=== PATIENT | male | born 1945 | race Two or more races ===

== ENCOUNTER 2018-02-15 09:50 | Emergency (ER) | payer OTHER ==
[~2018-02-15] VITALS: Ht 177.8 cm; Wt 88.5 kg
[~2018-02-15 09:50] MED LIST: NORTUSS-EX LIQ118 ML PO; TENORMIN50 M1 PO; ZITHROMAX500 MG PO
[2018-02-15] MEDS ORDERED: ORPHENADRINE C100 MG PO (14:51)
[2018-02-15] MEDS ORDERED: ULTRACET PO (14:51)
== END 2018-02-15 15:39 | disposition home or self-care (01) ==
LOC: ER 09:50
DX: M62.830 Muscle spasm of back (principal); R10.11 Right upper quadrant pain

== ENCOUNTER 2018-05-08 10:13 | Outpatient (CLI) | payer OTHER ==
[~2018-05-08 10:13] MED LIST changes: +ORPHENADRINE C100 MG PO; +ULTRACET PO
== END 2018-05-08 10:25 | disposition home or self-care (01) ==
LOC: RAD 501 10:13
DX: I70.0 Atherosclerosis of aorta (principal)

== ENCOUNTER 2020-02-03 17:46 | Emergency (ER) | payer OTHER ==
[~2020-02-03] VITALS: Ht 177.8 cm; Wt 86.2 kg
[2020-02-03] MEDS ORDERED: ATORVASTATIN CA40 MG (18:31)
[2020-02-03] MEDS ORDERED: COZAAR25 MG (18:31)
[2020-02-03] MEDS ORDERED: TOPROL XL50 M1 (18:32)
[2020-02-03] MEDS ORDERED: FORTAMET500 MG (18:32)
== END 2020-02-03 20:43 | disposition home or self-care (01) ==
LOC: ER 17:46
DX: I10 Essential (primary) hypertension (principal)

== ENCOUNTER 2021-10-09 10:43 | Outpatient (CLI) | payer OTHER ==
[~2021-10-09 10:43] MED LIST changes: +ATORVASTATIN CA40 MG; +COZAAR25 MG; +FORTAMET500 MG; +TOPROL XL50 M1
== END 2021-10-09 11:03 | disposition home or self-care (01) ==
LOC: RAD 10:43
PROVIDERS: ATTEND Physical Medicine & Rehabilitation
DX: M54.12 Radiculopathy, cervical region (principal)

== ENCOUNTER 2021-10-29 08:00 | Outpatient (CLI) | payer OTHER | END 2021-10-29 08:30 | disposition home or self-care (01) | LOC: PPH VACUNA 08:00 | PROVIDERS: ATTEND Emergency Medicine Pediatric Emergency Medicine | DX: Z23 Encounter for immunization (principal) ==

== ENCOUNTER 2022-01-04 09:32 | Emergency (ER) | payer OTHER ==
[~2022-01-04] VITALS: Ht 177.8 cm; Wt 83.9 kg
== END 2022-01-04 11:39 | disposition home or self-care (01) ==
LOC: ER 09:32
DX: K14.0 Glossitis (principal); Z88.8 Allergy status to other drugs, medicaments and biological substances; I10 Essential (primary) hypertension; E11.9 Type 2 diabetes mellitus without complications; Z79.84 Long term (current) use of oral hypoglycemic drugs

== ENCOUNTER 2023-08-04 13:15 | Emergency (ER) | payer OTHER ==
[~2023-08-04] VITALS: Ht 177.8 cm; Wt 83.9 kg
[2023-08-04] MEDS ORDERED: JARDIANCE10 MG (14:03)
[2023-08-04] MEDS ORDERED: ECOTRIN81 MG PO (14:03)
[2023-08-04 17:19] LABS: HEMATOCRIT 42.8 % (39.0-48.0); HEMOGLOBIN 14.6 g/dL (13-16.00); MEAN CELL VOLUME 89.1 fL (80.0-100.00); MEAN CORPUSCULAR HEMOGLOBIN 30.3 pg (27.00-32.0); PLATELET COUNT 204 K/uL (150-450); RED CELL DISTRIBUTION WIDTH 14.2 % (11.5-14.5)
[2023-08-04] MEDS ORDERED: BUDESONIDE0.5 MG/2 M IH (20:50)
[2023-08-04] MEDS ORDERED: ALBUTEROL2.5 MG/3 M IH (20:50)
== END 2023-08-04 21:00 | disposition home or self-care (01) ==
LOC: ER 13:16
PROVIDERS: Emergency Medicine
DX: J40 Bronchitis, not specified as acute or chronic (principal); I11.9 Hypertensive heart disease without heart failure; I20.89 Other forms of angina pectoris

== ENCOUNTER 2024-02-03 09:20 | Outpatient (CLI) | payer OTHER ==
[~2024-02-03 09:20] MED LIST changes: +ALBUTEROL2.5 MG/3 M IH; +BUDESONIDE0.5 MG/2 M IH; +ECOTRIN81 MG PO; +JARDIANCE10 MG
== END 2024-02-03 09:24 | disposition home or self-care (01) ==
LOC: RAD 09:20
DX: N39.3 Stress incontinence (female) (male) (principal)

== ENCOUNTER 2024-08-18 05:26 | Emergency (ER) | payer OTHER ==
[~2024-08-18] VITALS: Ht 177.8 cm; Wt 81.6 kg
[2024-08-18] MEDS ORDERED: JARDIANCE10 MG PO (05:44)
[2024-08-18] MEDS ORDERED: KETOROLAC TROMETHAMINE 30 MG VIAL IM STA (08:29)
[2024-08-18] MEDS ORDERED: GENTAMICIN SULFATE 0.15 MG/DR DROPS 5ML OP STA (08:29)
[2024-08-18] MEDS ORDERED: CEFTRIAXONE SODIUM 1,000 MG VIAL IM STA (08:29)
[2024-08-18] MEDS ORDERED: KETOROLAC TROMETHAMINE 30 MG VIAL ONE (08:36)
[2024-08-18] MEDS ORDERED: GENTAMICIN SULFATE 0.15 MG/DR DROPS 5ML OP ONE (08:36)
[2024-08-18] MEDS ORDERED: CEFTRIAXONE SODIUM 1,000 MG VIAL ONE (08:37)
== END 2024-08-18 08:53 | disposition home or self-care (01) ==
LOC: ER 05:26
DX: R53.81 Other malaise (principal); J06.9 Acute upper respiratory infection, unspecified
CPT/HCPCS: 96372; 99282; J0696; J1885

== ENCOUNTER 2025-04-25 11:34 | Outpatient (CLI) | payer OTHER ==
[~2025-04-25 11:34] MED LIST changes: +JARDIANCE10 MG PO
== END 2025-04-25 11:35 | disposition home or self-care (01) ==
LOC: RAD 11:34
PROVIDERS: ATTEND Physical Medicine & Rehabilitation
DX: M54.2 Cervicalgia (principal)